=== PATIENT | male | born 1955 | race Caucasian/White ===

== ENCOUNTER 2021-08-14 18:38 | Emergency (ER) | payer OTHER, MEDICARE ==
--- NOTE | 2021-08-14 18:38 | NUR ---
Pt triaged and placed in room 6.
--- NOTE | 2021-08-14 18:39 | NUR ---
RT and RN at bedside. Pt BIBA re stoma malfunction. Pt was reportedly seen at [facility] and discharged to [place]. [place] staff reported being unable to suction patient due to possible trach malfunction. Pt on non rebreather mask upon arrival; SpO2 92%. Awaiting MD evaluation.
--- NOTE | 2021-08-14 18:42 | NUR ---
Dr Fair at bedside (along with RT) to assess patient.
[2021-08-14 18:53] VITALS: BP_SYST 161
--- NOTE | 2021-08-14 19:00 | NUR ---
RT and Dr Fair changed patient's trach. Now on 98% O2 (10 L). SpO2 90-95%.
--- NOTE | 2021-08-14 19:10 | NUR ---
Report given to Tito MEMBRENO to assume care of patient
[2021-08-14 20:28] LABS: BASOPHILS # (AUTO) 0.1 K/uL (0.0-0.2); BASOPHILS % (AUTO) 0.8 % (0.0-2.0); EOSINOPHILS # (AUTO) 0.3 K/uL (0.0-0.4); EOSINOPHILS % (AUTO) 2.9 % (0.0-4.0); HEMATOCRIT 38.4 % (36-54); HEMOGLOBIN 12.8 g/dL (14.0-18.0); LYMPHOCYTES # (AUTO) 1.4 K/uL (1.0-5.5); LYMPHOCYTES % (AUTO) 11.9 % (20.5-51.5); MEAN CORPUSCULAR HEMOGLOBIN 31 pg (27-31); MEAN CORPUSCULAR HGB CONC 33 % (32-36); MEAN CORPUSCULAR VOLUME 93 fL (79.0-98.0); MONOCYTES # (AUTO) 1.2 K/uL (0.0-1.0); NEUTROPHILS # (AUTO) 8.9 K/uL (1.8-7.7); NEUTROPHILS % (AUTO) 74.4 % (40.0-70.0); PLATELET COUNT (AUTO) 135 K/uL (130-430); RED BLOOD CELL COUNT(AUTO) 4.14 MIL/uL (4.2-6.2); RED CELL DISTRIBUTION WIDTH 14.4 % (9.0-15.0); WHITE BLOOD COUNT (AUTO) 11.9 K/uL (4.8-10.8)
[2021-08-14 21:07] LABS: CALCIUM 9.1 mg/dL (8.4-11.0); CREATININE 1.08 mg/dL (0.55-1.30); POTASSIUM 4.5 mmol/L (3.5-5.1)
[2021-08-14 21:19] LABS: ALBUMIN 2.7 g/dL (3.4-4.8); TOTAL BILIRUBIN 0.8 mg/dL (0.0-1.0)
--- NOTE | 2021-08-14 21:20 | NUR ---
RESTING COMFORTABLY. NO ACUTE DISTRESS NOTED.
[2021-08-14 21:32] LABS: INR 0.9 (0.80-1.20); PROTHROMBIN TIME 10.1 SECS (9.5-12.5)
[2021-08-14] MEDS ORDERED: NACL 0.9% 1,000 ML IV ONE (23:15)
--- NOTE | 2021-08-14 23:17 | NUR ---
Medicated per MD orders. IVF infusing with no s/s of infiltration at this time. Will cont to monitor
--- NOTE | 2021-08-14 23:17 | NUR ---
# 18 gauge angiocath placed to RAC.Use of asceptic technique. Opsite placed over site. Blood return noted. Blood for lab drawn from site. Flushed with 10 cc of normal saline. No evidence of infiltration noted. Patient tolerated well.
--- NOTE | 2021-08-14 23:22 | NUR ---
CALLED HASEEB ROBERTS AT [facility], GIVEN REPORT GOING TO STATION 4 RM [id number].
[2021-08-15 00:56] VITALS: BP_SYST 143
--- NOTE | 2021-08-15 00:56 | NUR ---
Patient AND BLS TRANSPORT given written and verbal discharge instructions and verbalizes understanding. ER MD discussed with patient the results and treatment provided. Patient in stable condition. ID arm band removed. IV catheter removed intact and dressing applied, no active bleeding. NO RX given. Patient educated on pain management and to follow up with PMD. Pain Scale 0/10 Opportunity for questions provided and answered.
== END 2021-08-15 00:56 | disposition home or self-care (01) ==
LOC: SED 18:38
DX: E87.0 Hyperosmolality and hypernatremia (principal); E86.0 Dehydration; J39.8 Other specified diseases of upper respiratory tract; Z86.73 Personal history of transient ischemic attack (TIA), and cerebral infarction without residual deficits
CPT/HCPCS: 36415; 71045; 80053; 83880; 84484; 85025; 85610; 85730; 93005; 96360; 99285; J7030